=== PATIENT | female | born 1950 | race Caucasian/White ===

== ENCOUNTER → 2023-05-27 | Emergency (ER) | payer OTHER ==
[2023-05-27 09:00] LABS: Absolute Lymphocytes (CBC) 0.8 K/uL (0.7-4.9); Hematocrit 38.1 % (36.0-45.0); Lymphocytes % 11.3 % (15.3-44.8); MCV 79.9 fL (80-100); MPV 7.7 fL (7.6-11.3); Platelets 213 thou/uL (152-406); RBC Red Blood Cell Count 4.77 M/uL (3.86-4.86)
[2023-05-27 09:19] LABS: Albumin 3.6 g/dL (3.4-5.0); Bilirubin Direct 0.2 mg/dL (0-0.2); Bilirubin Indirect, Calculated 0.2 mg/dL (0.2-0.8); Bilirubin Total 0.4 mg/dL (0.2-1.0); Magnesium 2.1 mg/dL (1.6-2.4); Potassium 3.7 mEq/L (3.5-5.1); Protein, Total 7.4 g/dL (6.4-8.2); Troponin High Sensitivity 4.8 pg/mL (<58.9)
--- NOTE | 2023-05-27 09:48 | RAD REPORT ---
EXAM DESCRIPTION: RAD - Chest Single View - 05/27/2023 9:42 am CLINICAL HISTORY: dizziness Chest pain. COMPARISON: Chest Single View dated 01/03/2023; CHEST PA AND LAT 2 VIEW dated 08/16/2007 FINDINGS: Portable technique limits examination quality. Small calcified granuloma seen left apex. The lungs are otherwise emphysematous but clear. The heart is upper limit of normal in size. No displaced fractures.Hardware is present in the left humerus. IMPRESSION: No acute intrathoracic process suspected.
--- NOTE | 2023-05-27 11:30 | EDPHYS ---
Physician Documentation [facility] Name: Jia Nogueira Age: 72 yrs Sex: Female : 1950 Arrival Date: 05/27/2023 Time: 08:15 Bed 5 Private MD: ED Physician Jules Yusuf HPI: 05/27 08:58 This 72 yrs old Female presents to ER via Ambulatory with complaints of High Blood rt Pressure, Numbness. 08:58 Patient presents to the ED with reported hypertension, tingling sensation throughout rt her body. This first occurred about 1 week ago, symptoms been hospital, states that she was subsequent sent to the hospital where she was given clonidine 2 times and subsequently discharged without workup. Patient states that yesterday, symptoms have returned, she reports some tingling and somewhat lightheaded. Denies chest pain. Denies other acute complaints, symptoms are moderate in severity, no other aggravating relieving factors.. Historical: - Allergies: 08:37 No Known Allergies; ld1 - PMHx: 08:37 Bladder CA; Hyperthyroidism; Depressive disorder; ld1 - Immunization history:: Adult Immunizations up to date. - Social history:: Smoking status: Patient/guardian denies using tobacco, the patient reports quitting approximately 6 years ago, Patient/guardian denies using alcohol. ROS: 08:58 Constitutional: Negative for fever, chills, and weight loss, Cardiovascular: Negative rt for chest pain, palpitations, and edema, Respiratory: Negative for shortness of breath, cough, wheezing, and pleuritic chest pain, Abdomen/GI: Negative for abdominal pain, nausea, vomiting, diarrhea, and constipation, Skin: Negative for injury, rash, and discoloration, Psych: Negative for depression, anxiety, suicide ideation, homicidal ideation, and hallucinations, 08:58 Neuro: Positive for tingling, Negative for altered mental status, Exam: 08:58 Constitutional: This is a well developed, well nourished patient who is awake, alert, rt and in no acute distress. Head/Face: Normocephalic, atraumatic. Chest/axilla: Normal chest wall appearance and motion. Nontender with no deformity. No lesions are appreciated. Cardiovascular: Regular rate and rhythm with a normal S1 and S2. No gallops, murmurs, or rubs. Normal PMI, no JVD. No pulse deficits. Respiratory: Lungs have equal breath sounds bilaterally, clear to auscultation and percussion. No rales, rhonchi or wheezes noted. No increased work of breathing, no retractions or nasal flaring. Abdomen/GI: Soft, non-tender, with normal bowel sounds. No distension or tympany. No guarding or rebound. No evidence of tenderness throughout. Skin: Warm, dry with normal turgor. Normal color with no rashes, no lesions, and no evidence of cellulitis. MS/ Extremity: Pulses equal, no cyanosis. Neurovascular intact. Full, normal range of motion. Neuro: Awake and alert, GCS 15, oriented to person, place, time, and situation. Cranial nerves II-XII grossly intact. Motor strength 5/5 in all extremities. Sensory grossly intact. Cerebellar exam normal. Normal gait. Psych: Awake, alert, with orientation to person, place and time. Behavior, mood, and affect are within normal limits. 10:01 ECG was reviewed by the Attending Physician. rt Vital Signs: 08:36 BP 140 / 84; Pulse 103; Resp 18; Temp 97.9(TE); Pulse Ox 98% on R/A; Weight 64.41 kg; ld1 Height 5 ft. 3 in. ; Pain 0/10; 08:57 BP 142 / 90; Pulse 71; Resp 18; Pulse Ox 98% on R/A; ld1 10:37 BP 175 / 80; Pulse 85; Resp 18; Pulse Ox 99% on R/A; ld1 11:20 BP 164 / 79; Pulse 76; Resp 18; Pulse Ox 100% on R/A; ld1 08:36 Body Mass Index 25.15 (64.41 kg, 160.02 cm) ld1 08:36 Pain Scale: Adult ld1 MDM: 08:39 Patient medically screened. rt 11:59 Differential diagnosis: Hypertension, ACS, electrolyte disturbance. Data reviewed: rt vital signs, nurses notes. I considered the following discharge prescriptions or medication management in the emergency department Medications were administered in the Emergency Department. See MAR. Independent interpretation of the following test(s) in the Emergency Department CT Scan: My interpretation is No consolidations on interpretation of x-ray images. Test considered but Not performed: CT: No focal neurodeficits, CT scan not indicated. Care significantly affected by the following chronic conditions: hyperthyroidism. Counseling: I had a detailed discussion with the patient and/or guardian regarding the historical points, exam findings, and any diagnostic results supporting the discharge/admit diagnosis, lab results, radiology results, the need for outpatient follow up, to return to the emergency department if symptoms worsen or persist or if there are any questions or concerns that arise at home. 05/27 08:47 Order name: Basic Metabolic Panel; Complete Time: 09:20 rt 05/27 08:47 Order name: CBC with Diff; Complete Time: 09:20 rt 05/27 08:47 Order name: LFT's; Complete Time: 09:20 rt 05/27 08:47 Order name: Magnesium; Complete Time: 09:20 rt 05/27 08:47 Order name: Troponin HS; Complete Time: 09:20 rt 05/27 08:47 Order name: XRAY Chest (1 view); Complete Time: 09:54 rt 05/27 08:47 Order name: EKG; Complete Time: 08:47 rt 05/27 08:47 Order name: Cardiac monitoring; Complete Time: 08:55 rt 05/27 08:47 Order name: EKG - Nurse/Tech; Complete Time: 08:55 rt 05/27 08:47 Order name: IV Saline Lock; Complete Time: 08:55 rt 05/27 08:47 Order name: Labs collected and sent; Complete Time: 08:55 rt 05/27 08:47 Order name: O2 Per Protocol; Complete Time: 08:55 rt 05/27 08:47 Order name: O2 Sat Monitoring; Complete Time: 08:55 rt EC:01 Rate is 97 beats/min. Rhythm is regular, Normal Sinus Rhythm with No ectopy. QRS [place] rt is Normal. OR interval is normal. QRS interval is normal. No Q waves. Clinical impression: NSR w/ Non-specific ST/T Changes. Administered Medications: No medications were administered Disposition Summary: 05/27/23 11:29 Discharge Ordered Notes: Location: Home rt Problem: new rt Symptoms: have improved rt Condition: Stable rt Diagnosis - Essential (primary) hypertension rt Followup: rt - With: Private Physician - When: 5 - 6 days - Reason: Discharge Instructions: - Discharge Summary Sheet rt - Hypertension, Adult rt Forms: - Medication Reconciliation Form rt - Thank You Letter rt - Antibiotic Education rt - Prescription Opioid Use rt - Patient Portal Instructions rt - Leadership Thank You Letter rt Prescriptions: - Lisinopril 10 mg Oral tablet - take 1 tablet ORAL route once daily; 30 tablet; Refills: 0, Product Selection rt Permitted Signatures: Dispatcher [employer] Nereida Paulino RN RN ld1 Jules Yusuf MD MD rt
--- NOTE | 2023-05-27 11:30 | ER ---
Nurse's Notes [facility] Name: Jia Nogueira Age: 72 yrs Sex: Female : 1950 Arrival Date: 05/27/2023 Time: 08:15 Bed 5 Private MD: Diagnosis: Essential (primary) hypertension Presentation: 05/27 08:36 Chief complaint: Patient states: Hypertension X 1 week. Monitor at home read 210 ld1 systolic. Pt reports tingling sensation all over body. Not on hypertension medication. Coronavirus screen: At this time, the client does not indicate any symptoms associated with coronavirus-19. Ebola Screen: No symptoms or risks identified at this time. Initial Sepsis Screen: Does the patient meet any 2 criteria? No. Patient's initial sepsis screen is negative. Does the patient have a suspected source of infection? No. Patient's initial sepsis screen is negative. Risk Assessment: Do you want to hurt yourself or someone else? Patient reports no desire to harm self or others. Onset of symptoms was May 27, 2023. 08:36 Method Of Arrival: Ambulatory ld1 08:36 Acuity: ROHIT 3 ld1 Triage Assessment: 08:37 General: Appears in no apparent distress. comfortable, Behavior is calm, cooperative, ld1 appropriate for age. Pain: Denies pain. EENT: No signs and/or symptoms were reported regarding the EENT system. Neuro: Level of Consciousness is awake, alert, obeys commands, Oriented to person, place, time, situation. Cardiovascular: Capillary refill < 3 seconds Patient's skin is warm and dry. Respiratory: Airway is patent Respiratory effort is even, unlabored. GI: Abdomen is round non-distended. Historical: - Allergies: 08:37 No Known Allergies; ld1 - PMHx: 08:37 Bladder CA; Hyperthyroidism; Depressive disorder; ld1 - Immunization history:: Adult Immunizations up to date. - Social history:: Smoking status: Patient/guardian denies using tobacco, the patient reports quitting approximately 6 years ago, Patient/guardian denies using alcohol. Screenin:38 [facility] ED Fall Risk Assessment (Adult) History of falling in the last 3 months, ld1 including since admission No falls in past 3 months (0 pts). Abuse screen: Denies threats or abuse. Denies injuries from another. Nutritional screening: No deficits noted. Tuberculosis screening: No symptoms or risk factors identified. Assessment: 08:38 Reassessment:. General: Appears in no apparent distress. comfortable, Behavior is calm, ld1 cooperative, appropriate for age. Pain: Denies pain. Neuro: Level of Consciousness is awake, alert, obeys commands, Oriented to person, place, time, situation. Cardiovascular: Capillary refill < 3 seconds Patient's skin is warm and dry. Respiratory: Airway is patent Respiratory effort is even, unlabored. GI: Abdomen is round non-distended. : No signs and/or symptoms were reported regarding the genitourinary system. EENT: No signs and/or symptoms were reported regarding the EENT system. Derm: No signs and/or symptoms reported regarding the dermatologic system. Musculoskeletal: No signs and/or symptoms reported regarding the musculoskeletal system. 10:37 Reassessment: Patient appears in no apparent distress at this time. No changes from ld1 previously documented assessment. Patient and/or family updated on plan of care and expected duration. Pain level reassessed. Patient is alert, oriented x 3, equal unlabored respirations, skin warm/dry/pink. Vital Signs: 08:36 BP 140 / 84; Pulse 103; Resp 18; Temp 97.9(TE); Pulse Ox 98% on R/A; Weight 64.41 kg; ld1 Height 5 ft. 3 in. ; Pain 0/10; 08:57 BP 142 / 90; Pulse 71; Resp 18; Pulse Ox 98% on R/A; ld1 10:37 BP 175 / 80; Pulse 85; Resp 18; Pulse Ox 99% on R/A; ld1 11:20 BP 164 / 79; Pulse 76; Resp 18; Pulse Ox 100% on R/A; ld1 08:36 Body Mass Index 25.15 (64.41 kg, 160.02 cm) ld1 08:36 Pain Scale: Adult ld1 ED Course: 08:18 Patient arrived in ED. rg4 08:22 Jules Yusuf MD is Attending Physician. rt 08:36 Nereida Hubbard, MACKENZIE is Primary Nurse. ld1 08:37 Triage completed. ld1 08:37 Arm band placed on right wrist. EKG completed in triage. Results shown to MD. ld1 08:38 Patient has correct armband on for positive identification. Placed in gown. Bed in low ld1 position. Call light in reach. Side rails up X2. bus driver/monitor on. Pulse ox on. NIBP on. Door closed. Noise minimized. Warm blanket given. 08:38 No provider procedures requiring assistance completed. ld1 08:45 Inserted saline lock: 22 gauge in right hand, using aseptic technique. rs5 09:43 XRAY Chest (1 view) In Process Unspecified. EDMS 11:41 Provided Education on: New medication. ld1 11:41 IV discontinued, intact, bleeding controlled, No redness/swelling at site. ld1 Administered Medications: No medications were administered Medication: 08:38 VIS not applicable for this client. ld1 Outcome: 11:29 Discharge ordered by MD. rt 11:41 Discharged to home ambulatory, with family, ld1 11:41 Condition: stable 11:41 Discharge instructions given to patient, family, Instructed on discharge instructions, follow up and referral plans. medication usage, Demonstrated understanding of instructions, follow-up care, medications, Prescriptions given X 1, 11:41 Patient left the ED. ld1 Signatures: Dispatcher [employer] EDClemencia Camacho rg4 Nereida Hubbard, RN RN ld1 Jules Yusuf MD MD rt Ashok Gusman, RN RN rs5
[2023-05-27 11:58] VITALS: BP 164/79; TEMP 97.9; O2SAT 100
--- NOTE | 2023-05-30 14:41 | EKG ---
Test Date: 2023-05-27 Test Time: 08:34:33 Geochemical Manager: BRIGHT MEASUREMENT RESULTS: Intervals: Rate: 97 NJ: 136 QRSD: 74 QT: 382 QTc: 485 [place]: P: 78 NJ: 136 QRS: 49 T: 121 INTERPRETIVE STATEMENTS: Normal sinus rhythm ST & T wave abnormality, consider lateral ischemia Prolonged QT Abnormal ECG Compared to ECG 01/03/2023 12:38:26 ST (T wave) deviation now present Possible ischemia now present Prolonged QT interval now present Sinus bradycardia no longer present Electronically Signed On 05-30-23 14:31:06 GOLD WHEEL BLOCKER AND POLISHER by Gregor Yin
== END ==
LOC: ER 08:15
DX: I10 Essential (primary) hypertension (principal)
CPT/HCPCS: 36415; 71045; 80048; 80076; 83735; 84484; 85025; 93005

== ENCOUNTER → 2023-06-14 | Emergency (ER) | payer OTHER ==
--- NOTE | 2023-06-14 17:51 | RAD REPORT ---
EXAM DESCRIPTION: RAD - Chest Single View - 06/14/2023 5:44 pm CLINICAL HISTORY: DYSPNEA Chest pain. COMPARISON: Chest Single View dated 05/27/2023; Chest Single View dated 01/03/2023; CHEST PA AND LAT 2 VIEW dated 08/16/2007 FINDINGS: Portable technique limits examination quality. The lungs are emphysematous but grossly clear. The heart is normal in size. No displaced fractures.Wallis rdware is present proximal left humerus. IMPRESSION: COPD.
[2023-06-14 18:29] LABS: Specific Gravity 1.008 (1.005-1.030); Urine Bacteria <20 /HPF (<20); Urine Bilirubin NEGATIVE (Negative); Urine Blood 1+ (Negative); Urine Clarity Clear (Clear); Urine Color Colorless (Yellow); Urine Glucose NEGATIVE (Negative); Urine Mucus Slight /HPF (None Seen); Urine Protein NEGATIVE (Negative); Urine Urobilinogen Normal (Normal); Urine pH 5.5 (5.0-7.0)
[2023-06-14 18:44] LABS: Absolute Basophils 0.1 K/uL (0-0.5); Absolute Eosinophils 0.1 K/uL (0-0.5); Absolute Lymphocytes (CBC) 1.6 K/uL (0.7-4.9); Hematocrit 39.2 % (36.0-45.0); Hemoglobin 13.3 g/dL (12.0-15.0); Lymphocytes % 18.8 % (15.3-44.8); MCV 79.8 fL (80-100); Platelets 263 thou/uL (152-406); RBC Red Blood Cell Count 4.91 M/uL (3.86-4.86)
[2023-06-14 18:45] LABS: Albumin 3.8 g/dL (3.4-5.0); Bilirubin Total 0.6 mg/dL (0.2-1.0); Globulin 3.8 g/dL (2.3-3.5); Protein, Total 7.6 g/dL (6.4-8.2); Troponin High Sensitivity 5.4 pg/mL (<58.9)
--- NOTE | 2023-06-14 19:18 | RAD REPORT ---
EXAM DESCRIPTION: CTAbdomen Pelvis W Contrast - 06/14/2023 7:12 pm CLINICAL HISTORY: Abdominal pain. chest pain COMPARISON: Abdomen Pelvis W Contrast dated 01/03/2023; CT ABD PELVIS W CONTRAST dated 08/01/2007 TECHNIQUE: Biphasic CT imaging of the abdomen and pelvis was performed with 100 ml non-ionic IV cont rast. All CT scans are performed using dose optimization technique as appropriate and may include automated exposure control or mA/KV adjustment according to patient size. FINDINGS: The lung bases are clear. The liver, spleen, pancreas, adrenal glands and kidneys are within normal limits. Benign left renal c ysts. No bowel obstruction, free air, free fluid or abscess. The appendix is normal. No evidence of signi ficant lymphadenopathy. No suspicious bony findings. IMPRESSION: No acute intra-abdominal or pelvic finding.
--- NOTE | 2023-06-14 19:47 | ER ---
Nurse's Notes [facility] Name: Jia Nogueira Age: 72 yrs Sex: Female : 1950 Arrival Date: 06/14/2023 Time: 16:18 Bed 18 Private MD: Diagnosis: Abdominal pain, unspecified;Diarrhea, unspecified Presentation: 06/13 16:55 Chief complaint: Patient states: C/O lower abdominal pain, L flank pain. 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 "Every once in a while I get a wave that runs from my stomach/chest down to my feet." Reports diarrhea yesterday. Coronavirus screen: At this time, the client does not indicate any symptoms associated with coronavirus-19. Ebola Screen: No symptoms or risks identified at this time. Initial Sepsis Screen: Does the patient meet any 2 criteria? No. Patient's initial sepsis screen is negative. Does the patient have a suspected source of infection? No. Patient's initial sepsis screen is negative. Risk Assessment: Do you want to hurt yourself or someone else? Patient reports no desire to harm self or others. Onset of symptoms was June 14, 2023 at 16:57. 16:55 Method Of Arrival: Ambulatory ld1 16:55 Acuity: ROHIT 3 ld1 Triage Assessment: 16:57 General: Appears in no apparent distress. comfortable, Behavior is cooperative, ld1 anxious. Pain: Complains of pain in right lower quadrant and left lower quadrant Pain does not radiate. Pain currently is 6 out of 10 on a pain scale. EENT: No signs and/or symptoms were reported regarding the EENT system. Neuro: Level of Consciousness is awake, alert, obeys commands, Oriented to person, place, time, situation. Cardiovascular: Capillary refill < 3 seconds Patient's skin is warm and dry. Respiratory: Airway is patent Respiratory effort is even, unlabored. GI: Abdomen is round non-distended. GI: Reports diarrhea, nausea. : No signs and/or symptoms were reported regarding the genitourinary system. Derm: No signs and/or symptoms reported regarding the dermatologic system. Musculoskeletal: No signs and/or symptoms reported regarding the musculoskeletal system. Historical: - Allergies: 16:57 No Known Allergies; ld1 - PMHx: 16:57 Bladder CA; depressive disorder; hyperthyroidism; ld1 - Immunization history:: Adult Immunizations up to date. - Social history:: Smoking status: Patient denies any tobacco usage or history of. Patient/guardian denies using alcohol. - Family history:: not pertinent. Screenin:07 Abuse screen: Denies threats or abuse. Denies injuries from another. Nutritional ha1 screening: No deficits noted. Tuberculosis screening: No symptoms or risk factors identified. 20:08 [facility] ED Fall Risk Assessment (Adult) History of falling in the last 3 months, ha1 including since admission No falls in past 3 months (0 pts) Confusion or Disorientation No (0 pts) Intoxicated or Sedated No (0 pts) Impaired Gait No (0 pts) Mobility Assist Device Used No (0 pt) Altered Elimination No (0 pt) Score/Fall Risk Level 0 - 2 = Low Risk Oriented to surroundings, Maintained a safe environment, Educated pt \\T\\ family on fall prevention, incl call for assistance when getting out of bed. Assessment: 18:16 General: Appears uncomfortable, Behavior is calm, cooperative, appropriate for age. ap3 Pain: Complains of pain in abdomen and left lower quadrant and right lower quadrant Pain currently is 4 out of 10 on a pain scale. Neuro: Level of Consciousness is awake, alert, obeys commands, Oriented to person, place, time, situation. Cardiovascular: Patient's skin is warm and dry. Respiratory: Airway is patent Respiratory effort is even, unlabored, Respiratory pattern is regular, symmetrical. GI: Abdomen is flat, Reports lower abdominal pain, upper abdominal pain. 19:03 Reassessment: No changes from previously documented assessment. Patient and/or family ap3 updated on plan of care and expected duration. Pain level reassessed. Patient is alert, oriented x 3, equal unlabored respirations, skin warm/dry/pink. 19:30 General: Appears comfortable, Behavior is calm, cooperative. Pain: Denies pain. Neuro: ha1 Level of Consciousness is awake, alert, obeys commands, Oriented to person, place, time, situation. Cardiovascular: Capillary refill < 3 seconds Patient's skin is warm and dry. Respiratory: Airway is patent Respiratory effort is even, unlabored, Respiratory pattern is regular, symmetrical. GI: Abdomen is round non-distended, Reports diarrhea. Derm: Skin is pink, warm \\T\\ dry. Musculoskeletal: Circulation, motion, and sensation intact. Range of motion: intact in all extremities. 20:08 Reassessment: Patient and/or family updated on plan of care and expected duration. Pain ha1 level reassessed. Patient is alert, oriented x 3, equal unlabored respirations, skin warm/dry/pink. Patient denies pain at this time. Patient states feeling better. Patient states symptoms have improved. Vital Signs: 16:55 BP 148 / 83; Pulse 99; Resp 18; Temp 98.7(O); Pulse Ox 97% on R/A; Weight 64.41 kg; ld1 Height 5 ft. 3 in. ; Pain 0/10; 18:17 Pulse 73; Resp 15; Temp 98.4; Pulse Ox 97% on R/A; Pain 4/10; ap3 19:02 BP 119 / 72; Pulse 75; Resp 18; Pulse Ox 99% on R/A; ap3 19:30 BP 111 / 57; Pulse 55; Resp 17 S; Pulse Ox 98% on R/A; ha1 16:55 Body Mass Index 25.15 (64.41 kg, 160.02 cm) ld1 16:55 Pain Scale: Adult ld1 18:17 Pain Scale: Adult ap3 ED Course: 16:24 Patient arrived in ED. ae5 16:40 Jules Yusuf MD is Attending Physician. rt 16:57 Triage completed. ld1 16:57 Arm band placed on right wrist. ld1 17:51 Chest Single View XRAY In Process Unspecified. EDMS 18:15 Initial lab(s) drawn, by me, sent to lab. Inserted saline lock: 22 gauge in right ap3 forearm, using aseptic technique. Blood collected. 18:17 Patient has correct armband on for positive identification. Bed in low position. Call ap3 light in reach. Side rails up X 1. manager monitoring on. Pulse ox on. NIBP on. Door closed. Noise minimized. 19:12 Dina Lucas, MACKENZIE is Primary Nurse. ap3 19:12 Report given to MACKENZIE Rosales. ap3 19:14 Abdomen In Process Unspecified. EDMS 20:07 No provider procedures requiring assistance completed. IV discontinued, intact, ha1 bleeding controlled, No redness/swelling at site. Pressure dressing applied. 20:08 Provided Education on: following up with pcp. ha1 Administered Medications: No medications were administered Medication: 20:07 VIS not applicable for this client. ha1 Outcome: 19:47 Discharge ordered by . rt 20:07 Discharged to home ambulatory, ha1 20:07 Condition: stable 20:07 Discharge instructions given to patient, Instructed on discharge instructions, follow up and referral plans. Demonstrated understanding of instructions, follow-up care, 20:09 Patient left the ED. ha1 Signatures: Dispatcher [employer] Dina Redman RN RN ap3 Nereida Hubbard RN RN ld1 Connie Pritchett RN RN ha1 Jules Yusuf MD MD rt So Alvarez ae5
--- NOTE | 2023-06-14 19:47 | EDPHYS ---
Physician Documentation [facility] Name: Jia Nogueira Age: 72 yrs Sex: Female : 1950 Arrival Date: 06/14/2023 Time: 16:18 Bed 18 Private MD: ED Physician Jules Yusuf HPI: 06/13 17:19 This 72 yrs old Female presents to ER via Ambulatory with complaints of Blood Pressure rt Problem. 17:19 Patient presents to the ED with diarrhea starting yesterday as well as a generalized rt abdominal pain pain, worsening epigastric region. She reports tingling sensation to her body. States that the diarrhea has improved after Imodium. Reports nausea without vomiting. She states that she was short of breath without cough. States that the abdominal pain is cramping. Denies other acute complaints, symptoms are moderate in severity, no other aggravating or alleviating factors.. Historical: - Allergies: 16:57 No Known Allergies; ld1 - PMHx: 16:57 Bladder CA; depressive disorder; hyperthyroidism; ld1 - Immunization history:: Adult Immunizations up to date. - Social history:: Smoking status: Patient denies any tobacco usage or history of. Patient/guardian denies using alcohol. - Family history:: not pertinent. ROS: 17:19 Constitutional: Negative for fever, chills, and weight loss, Cardiovascular: Negative rt for chest pain, palpitations, and edema, MS/Extremity: Negative for injury and deformity, Skin: Negative for injury, rash, and discoloration, Psych: Negative for depression, anxiety, suicide ideation, homicidal ideation, and hallucinations, 17:19 Respiratory: Positive for shortness of breath, Negative for cough, 17:19 Abdomen/GI: Positive for abdominal pain, nausea, diarrhea, Exam: 17:19 Constitutional: This is a well developed, well nourished patient who is awake, alert, rt and in no acute distress. Head/Face: Normocephalic, atraumatic. Chest/axilla: Normal chest wall appearance and motion. Nontender with no deformity. No lesions are appreciated. Cardiovascular: Regular rate and rhythm with a normal S1 and S2. No gallops, murmurs, or rubs. Normal PMI, no JVD. No pulse deficits. Respiratory: Lungs have equal breath sounds bilaterally, clear to auscultation and percussion. No rales, rhonchi or wheezes noted. No increased work of breathing, no retractions or nasal flaring. Skin: Warm, dry with normal turgor. Normal color with no rashes, no lesions, and no evidence of cellulitis. MS/ Extremity: Pulses equal, no cyanosis. Neurovascular intact. Full, normal range of motion. Neuro: Awake and alert, GCS 15, oriented to person, place, time, and situation. Cranial nerves II-XII grossly intact. Motor strength 5/5 in all extremities. Sensory grossly intact. Cerebellar exam normal. Normal gait. Psych: Awake, alert, with orientation to person, place and time. Behavior, mood, and affect are within normal limits. 17:19 Abdomen/GI: Mild tenderness to the epigastrium without rebound, guarding, distention, Vital Signs: 16:55 BP 148 / 83; Pulse 99; Resp 18; Temp 98.7(O); Pulse Ox 97% on R/A; Weight 64.41 kg; ld1 Height 5 ft. 3 in. ; Pain 0/10; 18:17 Pulse 73; Resp 15; Temp 98.4; Pulse Ox 97% on R/A; Pain 4/10; ap3 19:02 BP 119 / 72; Pulse 75; Resp 18; Pulse Ox 99% on R/A; ap3 19:30 BP 111 / 57; Pulse 55; Resp 17 S; Pulse Ox 98% on R/A; ha1 16:55 Body Mass Index 25.15 (64.41 kg, 160.02 cm) ld1 16:55 Pain Scale: Adult ld1 18:17 Pain Scale: Adult ap3 MDM: 17:04 Patient medically screened. rt 19:47 Differential Diagnosis Enteritis, nonspecific abdominal pain, appendicitis. Data rt reviewed: vital signs, nurses notes. I considered the following discharge prescriptions or medication management in the emergency department Medications were administered in the Emergency Department. See MAR. Independent interpretation of the following test(s) in the Emergency Department CT Scan: My interpretation is No bowel obstruction syndrome interpretation of CT scan images. Care significantly affected by the following chronic conditions: Hypertension. Counseling: I had a detailed discussion with the patient and/or guardian regarding the historical points, exam findings, and any diagnostic results supporting the discharge/admit diagnosis, lab results, radiology results, the need for outpatient follow up, to return to the emergency department if symptoms worsen or persist or if there are any questions or concerns that arise at home. Response to treatment: the patient's symptoms have markedly improved after treatment. 06/13 17:04 Order name: CBC with Diff; Complete Time: 19:05 rt 06/13 17:04 Order name: CMP; Complete Time: 19:05 rt 06/13 17:04 Order name: Lipase; Complete Time: 19:05 rt 06/13 17:04 Order name: Urinalysis w/ reflexes; Complete Time: 19:05 rt 06/13 17:04 Order name: Troponin High Sensitivity; Complete Time: 19:05 rt 06/13 17:04 Order name: BNP; Complete Time: 19:05 rt 06/13 17:04 Order name: CT Abd/Pelvis - IV Contrast Only rt 06/13 17:04 Order name: Chest Single View XRAY; Complete Time: 19:05 rt 06/13 17:51 Order name: Abdomen ; Complete Time: 19:36 EDMS 06/13 17:04 Order name: IV Saline Lock; Complete Time: 18:24 rt 06/13 17:04 Order name: Labs collected and sent; Complete Time: 18:24 rt Administered Medications: No medications were administered Disposition Summary: 06/14/23 19:47 Discharge Ordered Notes: Location: Home rt Problem: new rt Symptoms: have improved rt Condition: Stable rt Diagnosis - Abdominal pain, unspecified rt - Diarrhea, unspecified rt Followup: rt - With: Private Physician - When: 2 - 3 days - Reason: Discharge Instructions: - Discharge Summary Sheet rt - Abdominal Pain, Adult rt - Diarrhea, Adult rt Forms: - Medication Reconciliation Form rt - Thank You Letter rt - Antibiotic Education rt - Prescription Opioid Use rt - Patient Portal Instructions rt - Leadership Thank You Letter rt Signatures: Dispatcher [employer] Nereida Paulino RN RN ld1 Jules Yusuf MD MD rt
[2023-06-14 20:27] VITALS: BP 111/57; TEMP 98.4; O2SAT 98
== END ==
LOC: SUPCPDRO 16:18 → ER 16:18
DX: R10.13 Epigastric pain (principal); R19.7 Diarrhea, unspecified; Z85.51 Personal history of malignant neoplasm of bladder
CPT/HCPCS: 85025; 81001; 36415; 84484; 83690; 80053; 83880; 74177; 71045; Q9967